=== PATIENT | female | born 1950 | race Caucasian/White ===

== ENCOUNTER 2018-06-15 07:43 | Outpatient (CLI) | payer MEDICARE, OTHER | END 2018-06-15 07:44 | disposition home or self-care (01) | LOC: BICMAMMO 07:43 | PROVIDERS: ATTEND Obstetrics & Gynecology | DX: Z12.31 Encounter for screening mammogram for malignant neoplasm of breast (principal); R92.1 Mammographic calcification found on diagnostic imaging of breast | CPT/HCPCS: 77063; 77067 ==

== ENCOUNTER 2019-07-05 10:17 | Outpatient (CLI) | payer MEDICARE, OTHER ==
--- NOTE | 2019-07-05 11:20 | MMO ---
Bilateral MAMMO Bilat Screen [facility]. CLINICAL HISTORY: Patient is 68 years old and is seen for screening. The patient has the following family history of breast cancer: sister, malignant (generic). The patient has no personal history of cancer. The patient has a history of left Excisional Biopsy in 35 years ago - benign - cyst removed. VIEWS: The views performed were: bilateral craniocaudal with tomosynthesis and bilateral mediolateral oblique with tomosynthesis. FILMS COMPARED: The present examination has been compared to prior imaging studies performed at [facility] on 05/10/2015, 06/03/2016, 06/04/2017 and 06/15/2018. This study has been interpreted with the assistance of computer-aided detection. MAMMOGRAM FINDINGS: The breasts are heterogeneously dense, which could obscure a lesion on mammography. There are stable benign appearing calcifications seen in both breasts. There are no suspicious masses, suspicious calcifications, or new areas of architectural distortion. IMPRESSION: THERE IS NO MAMMOGRAPHIC EVIDENCE OF MALIGNANCY. A ROUTINE FOLLOW-UP MAMMOGRAM IN 1 YEAR IS RECOMMENDED. THE RESULTS OF THIS EXAM WERE SENT TO THE PATIENT. ACR BI-RADS Category 2 - Benign finding MAMMOGRAPHY NOTE: 1. A negative mammogram report should not delay a biopsy if a dominant of clinically suspicious mass is present. 2. Approximately 10% to 15% of breast cancers are not detected by mammography. 3. Adenosis and dense breasts may obscure an underlying neoplasm. Reported by: ROSALIO ALVAREZ MD Electonically Signed: [id number]
== END 2019-07-05 10:18 | disposition home or self-care (01) ==
LOC: BICMAMMO 10:17
PROVIDERS: ATTEND Physician Assistant
DX: Z12.31 Encounter for screening mammogram for malignant neoplasm of breast (principal); Z80.3 Family history of malignant neoplasm of breast
CPT/HCPCS: 77063; 77067

== ENCOUNTER 2019-08-19 20:05 | Inpatient (IN) | payer MEDICARE, OTHER ==
[2019-08-19 20:56] LABS: Bilirubin Negative (Negative); Blood, Urine Negative (Negative); Clarity Clear (Clear); Glucose, Urine (Dipstick) 70 mg/dL (Negative); Leukocyte 75 Leu/uL (Negative); Mucous/LPF 1+ LPF (<2+); Nitrite Negative (Negative); Protein, Urine (Dipstick) 70 mg/dL (Neg-Trace); RBC/HPF 0-3 HPF (0-3); Squamous Epithelial 0-3 HPF (0-3)
[2019-08-19 21:06] LABS: Bacteria/HPF 2+ HPF (None Seen)
[2019-08-19 22:14] LABS: Troponin I Less than 0.010 ng/mL (< 0.028)
[2019-08-19 22:21] LABS: Actual Bicarbonate (HCO3a) 31.1 mEq/L (22-28); Analyzer IN Cardio ER; Base Excess (BEa) 1.6 mEq/L (-2.0 to +3.0); Calcium, Ionized 1.04 mmol/L (1.12-1.30); Carboxyhemoglobin (COHb) 1.2 gm% (0.0-3.0); Hemoglobin (Hb) 15.1 g/dL (12.0-16.0); O2 Tension (PaO2) 69.6 mmHg (> 80.0); Potassium - ABG Lab 3.96 mmol/L (3.70-5.30)
[2019-08-19 22:23] LABS: CO2 Tension 71.9 mmHg (35.0-45.0); Puncture Site RRA; pH, Arterial 7.25 (7.35-7.45)
[2019-08-19 22:24] LABS: ALV-art Gradient 68.685 (0-20)
[2019-08-19] MEDS ORDERED: Ondansetron ODT 4 MG TAB SL PRN (23:03)
[2019-08-19] MEDS ORDERED: Sodium Chloride 0.9% 1,000 ML IV SCH (23:03)
[2019-08-19] MEDS ORDERED: Ondansetron PF 4 MG/2 ML Vial IVP PRN (23:03)
[2019-08-19 23:34] VITALS: BMI 26.9
[2019-08-20 01:11] LABS: Troponin I 0.014 ng/mL (< 0.028)
[2019-08-20] MEDS ORDERED: hydrALAZINE 20 MG/ML VIAL SLOW IVP PRN (01:31)
[2019-08-20] MEDS ORDERED: Acetaminophen 500 MG TAB PO PRN (01:31)
[2019-08-20] MEDS ORDERED: Labetalol HCl 100 MG/20 ML VIAL SLOW IVP PRN (01:31)
[2019-08-20] MEDS ORDERED: Bacteriostatic Water 30 ML VIAL FS PRN (01:37)
[2019-08-20] MEDS: Sodium Chloride 0.9% 1,000 ML IV SCH ×2 (01:41→15:47)
--- NOTE | 2019-08-20 03:00 | HP ---
PRIMARY CARE PROVIDER: Patti Benedict MD. CHIEF COMPLAINT: Shortness of breath. HISTORY OF PRESENT ILLNESS: This is a 69-year-old female who was transferred from [facility] for increasing shortness of breath and COPD exacerbation. The patient had complained of approximate 3-day history of persistent shortness of breath and weakness in the context of known COPD. The patient states she had been prescribed home oxygen, but has not been wearing the oxygen. The patient denied any fever, chills, exposure to history or recent travel. The patient does report nausea and vomiting, which began on the date of evaluation in the emergency room. The patient denied any productive cough for hemoptysis. In the emergency room, the patient underwent general evaluation including chest imaging showing no acute infiltrate. The patient was initially treated with Rocephin, azithromycin, Augmentin, intravenous normal saline, Zofran, Solu-Medrol, and DuoNebs. PAST MEDICAL HISTORY: 1. Chronic obstructive pulmonary disease. 2. Tobacco abuse ongoing. 3. Hypertension. 4. Hyperlipidemia. PAST SURGICAL HISTORY: Reviewed and negative. CURRENT MEDICATIONS: 1. Diphenhydramine 25 mg p.o. at bedtime p.r.n. 2. Ipratropium bromide 0.2 mg inhaled daily p.r.n. 3. Lisinopril 10 mg p.o. daily. 4. Pravachol 20 mg p.o. at bedtime. ALLERGIES: TO CODEINE AND MORPHINE SULFATE. FAMILY HISTORY: No inheritable diseases per patient report. SOCIAL HISTORY: Smokes up to a pack of cigarettes daily. No alcohol or illicit drug use. REVIEW OF SYSTEMS: CONSTITUTIONAL: Negative for weight loss or gain, ability to conduct usual activities. SKIN: Negative for rash, itching. EYES: Negative for double vision, pain. ENT/MOUTH: Negative for nose bleeding, neck stiffness, pain, tenderness. CARDIOVASCULAR: Negative for palpitations, dyspnea on exertion, orthopnea. RESPIRATORY: Negative for shortness of breath, wheezing, cough, hemoptysis, fever or night sweats. GASTROINTESTINAL: Negative for poor appetite, abdominal pain, heartburn, nausea, vomiting, constipation, or diarrhea. GENITOURINARY: Negative for urgency, frequency, dysuria, nocturia. MUSCULOSKELETAL: Negative for pain, swelling. NEUROLOGIC/PSYCHIATRIC: Negative for anxiety, depression. ALLERGY/IMMUNOLOGIC: Negative for skin rash, bleeding tendency. Otherwise is negative except as stated per HPI. PHYSICAL EXAMINATION: VITAL SIGNS: On admission, blood pressure 115/79, pulse 96, respiratory rate 25, temperature 97.6 degrees Fahrenheit, O2 saturation 95% on 2 L/minute by nasal cannula. GENERAL APPEARANCE: This is a 69-year-old female, currently on BiPAP noninvasive mechanical ventilation, in no acute distress. HEENT: Pupils are equal, round, reactive to light and accommodation. Extraocular muscles are intact. No scleral icterus. No conjunctival injection. Nares are patent. OP is clear. Teeth in fair repair. NECK: Supple. No cervical adenopathy. No thyromegaly. No carotid bruits. No JVD appreciated. Cervical spine with full active and passive range of motion. No meningeal signs noted. CHEST: Diminished breath sounds bilaterally with occasional coarse sound in the base. ABDOMEN: Rounded, soft, nontender, and nondistended. Bowel sounds are positive in all 4 quadrants. There is no hepatosplenomegaly. No abdominal bruits. No rebound or guarding appreciated. EXTREMITIES: Warm and dry with fair turgor. No clubbing, cyanosis, or asymmetric edema appreciated. Pulses are palpable distally at the dorsalis pedis, posterior tibial, and popliteal arteries bilaterally. Capillary refill less than 2 seconds. NEUROLOGIC: Cranial nerves 2 through 12 are grossly intact. No focal or lateralizing signs appreciated. PERTINENT LABORATORY AND X-RAY FINDINGS: Sodium 141, potassium 4.2, chloride 95, CO2 of 35, BUN 14, creatinine 0.78, glucose 189. Lactic acid level 1.6, calcium 9.1. LFTs within normal limits. Troponin I negative x1. CBC showed a white blood cell count of 17.9, hemoglobin 15.8, hematocrit 53, platelet count 445 with 91% neutrophilia. ABG dated 08/19/2019 showed a pH of 7.25, pCO2 of 72, pO2 of 70, bicarb 31, O2 saturation 93% on 32% FiO2. Portable chest x-ray dated 08/19/2019 showed no acute cardiopulmonary process. EKG dated 08/19/2019 by my interpretation shows a sinus mechanism with heart rates in the 90s. Normal R-wave progression noted in the precordial leads. Normal axis. No acute ST-T wave changes appreciated. ASSESSMENT AND PLAN: 1. Acute hypoxic hypercapnic respiratory failure. The patient will be admitted to the intermediate care unit. Continue BiPAP noninvasive mechanical ventilation, titrating to clinical response. See #2 below for management. 2. Acute chronic obstructive pulmonary disease exacerbation. We will continue Levaquin 750 mg IV q.24 hours. DuoNeb q.4 hours. Solu-Medrol 40 mg IV q.6 hours. Pulmonology consult in the a.m.. 3. Hypertension. Confirm home blood pressure regimen. IV hydralazine and labetalol p.r.n. systolic greater than or equal to 180. 4. Tobacco abuse. We will offer smoking cessation resources prior to discharge. 5. Prophylaxis. Sequential compression devices while in bed. Pepcid 20 mg IV b.i.d. 6. Code status is full. Surrogate medical decision maker is the patient's spouse. Job ID: [id number]
[2019-08-20] MEDS: Ondansetron PF 4 MG/2 ML Vial IVP PRN ×2 (03:56→10:13)
[2019-08-20 04:25] LABS: Band 12 % (5-11); Hemoglobin 13.3 g/dL (12.0-16.0); Hypochromia SLIGHT = 6-15 cells (100X) (0-5/hpf); Lymphocytes 3 % (21-51); MDiff Complete? YES; Mean Corpuscular HGB CONC 31.5 g/dL (32.0-36.0); Mean Corpuscular Hemoglobin 30.8 pg (27.0-31.0); Mean Platelet Volume 8.2 fL (7.4-10.4); Neutrophil 85 % (42-75); Platelet Count 366 thou/uL (130-400); Platelet Morphology Comment Appears Adequate; RBC Distribution Width 12.5 % (11.5-14.5); Red Blood Cell (RBC) Count 4.32 mill/uL (4.20-5.40); White Blood Cell (WBC) Count 13.5 thou/uL (4.8-10.8)
[2019-08-20 04:41] LABS: Anion Gap 12 mmol/L (10-20); BUN (Urea Nitrogen) 12 mg/dL (9.8-20.1); Calc. Creatinine Clearance 90 mL/min (70-130); Calcium 7.8 mg/dL (7.8-10.44); Carbon Dioxide 32 mmol/L (23-31); Chloride 102 mmol/L (98-107); Estimated GFR-MDRD Greater than 90; Glucose 158 mg/dL (80-115); Potassium 4.4 mmol/L (3.5-5.1); Sodium 142 mmol/L (136-145)
[2019-08-20 04:46] LABS: Troponin I 0.013 ng/mL (< 0.028)
[2019-08-20] MEDS: methylPREDNISolone Sod Succ 40 MG VIAL IVP SCH ×3 (05:45→17:40)
--- NOTE | 2019-08-20 07:40 | PDOC.PULCN ---
Pulmonology Consult: HPI - Date of Consult Date: 08/20/19 Time: 07:30 - Consult Details Reason for Consult: acute hypoxic hypercapneic resp failure requiring bipap Requesting Physician: Dr. Giles - History of Present Illness HPI: 69 yo F with COPD, non compliant with medications, transferred from [place] for respiratory failure requiring Bipap due to COPD exacerbation. Brenton started feeling SOB 3 days ago and overall not feeling well. >20 pack year history, currently smoking and states she uses an inhaler intermittently. She has never seen a lung doctor before. Denies fevers, chills but reports nausea and vomiting. She states she has not been wearing oxygen that she has been given in the past. Review of imaging shows CXR with hyperinflation but no signs of infiltrate. She received a dose of rocephin, azithromycin and levaquin , brochodilator therapy and IV steroids. ABG showed 7.25/71.9/69.6 consistent with respiratory acidosis and acute respiratory failure, thus she was tfx and admitted to the IMCU. Pulmonology Consult: ROS - Review of Systems Constitutional: negative: fever, chills, sweats Cardiovascular: negative: palpitations, orthopnea Respiratory: cough, non-productive cough, short of breath, wheezing. negative: blodd streaked sputum Pulmonology Consult: [facility] Source: patient Past Medical History: Current tobacco abuse, COPD with noncompliance, HLD, HTN - Family History Family history: reviewed and not pertinent - Social History Smoking Status: Current every day smoker Pack Years: 20 Alcohol Use: none Drug Use History: none Pulmonology Consult: Meds - Medications MAR Reviewed: Yes Medications: Current Medications Acetaminophen (Tylenol) 1,000 mg PO Q6H PRN PRN Reason: Mild Pain (1-3) Albuterol/Ipratropium (Duoneb) 3 ml NEB [id number] DEMARCUS Last Admin: 08/20/19 02:23 Dose: 3 ml Famotidine (Pepcid) 20 mg SLOW IVP Q12HR DEMARCUS Hydralazine HCl (Apresoline) 10 mg SLOW IVP Q4H PRN PRN Reason: SBP > 180 and HR < 70 Levofloxacin 750 mg/ Device 150 mls @ 100 mls/hr IVPB Q24HR [facility] Last Admin: 08/20/19 02:33 Dose: 150 mls Sodium Chloride (Normal Saline 0.9%) 1,000 mls @ 75 mls/hr IV .[id number] [facility] Last Admin: 08/20/19 01:41 Dose: Not Given Labetalol HCl (Normodyne) 20 mg SLOW IVP Q4H PRN PRN Reason: SBP > 180 and HR >/= 70 Methylprednisolone Sodium Succinate (Solu-Medrol) 40 mg IVP Q6HR [facility] Last Admin: 08/20/19 05:45 Dose: 40 mg Ondansetron HCl (Zofran Odt) 4 mg PO Q6H PRN PRN Reason: Nausea/Vomiting Ondansetron HCl (Zofran) 4 mg IVP Q6H PRN PRN Reason: Nausea/Vomiting Last Admin: 08/20/19 03:56 Dose: 4 mg Sterile Water (Bacteriostatic Water) 1 ml FS PRN PRN PRN Reason: RECONSTITUTION - Allergies Allergies/Adverse Reactions: Allergies Allergy/AdvReac Type Severity Reaction Status Date / Time codeine Allergy Verified 08/19/19 23:22 morphine Allergy Verified 08/19/19 23:22 Pulmonology Consult: PE - Physical Exam Constitutional: NAD HEENT: sclera anicteric Cardiovascular: RRR, no significant murmur Respiratory: decreased breath sounds, wheezes Focused Respiratory Location: decreased breath sounds: Right, Left, Upper, Lower Gastrointestinal: soft Musculoskeletal: no edema Neurological: non-focal Pulmonology Consult: Results - Labs Result Diagrams: 08/20/19 03:26 08/20/19 03:26 - ABG Interpretation ABG Results: ABG pH 7.25 (7.35-7.45) L* 08/19/19 20:44 ABG pCO2 71.9 mmHg (35.0-45.0) H* 08/19/19 20:44 ABG O2 Sat Calc/Josh 92.6 % (94.0-98.0) L 08/19/19 20:44 ABG Base Excess 1.6 mEq/L (-2.0 to +3.0) 08/19/19 20:44 - Radiology Interpretation Chest x-ray Status: image reviewed by me, report reviewed by me Additional comments: Hyperinflated lungs No signs of focal infilatrate Pulmonology Consult: A/P - Problem (1) Acute respiratory failure with hypoxia and hypercapnia Current Visit: Yes Code(s): J96.01 - ACUTE RESPIRATORY FAILURE WITH HYPOXIA; J96.02 - ACUTE RESPIRATORY FAILURE WITH HYPERCAPNIA Status: Acute (2) COPD exacerbation Current Visit: Yes Code(s): J44.1 - CHRONIC OBSTRUCTIVE PULMONARY DISEASE W ( ACUTE) EXACERBATION Status: Acute - Time Time: 50% of the time was spent in coordination of care (as documented) at patient's floor/unit and/or counseling patient. Time with Patient: greater than 50 minutes - Plan Plan: 69 yo F with COPD here for acute hypoxic hypercapenic respiratory failure secondary to COPD exacerbation requiring non-invasive positive pressure ventilation 1. Acute hypoxic hypercapneic respiratory failure requiring non-invasive ventilation: S/P bipap overnight but currently non hypoxic on nasal cannula, wean as tolerated. Continue scheduled bronchodilator therapy, IV steroids, antibiotics. 2. Acute on chronic COPD exacerbation: Continue as above. Will need home medication regimen changed to optimal therapy. Counseled on smoking cessation. Can consider continuation of levaquin for 5 day course. 3. Respiratory acidemia: pH 7.25/ pCO2 71.9/ pO2 69.9. Secondary to above. Expect acidosis to correct with mgmt of COPD 4. Tobacco abuse: Counseled cessation 5. HTN: Continue current regimen Dr. Peterson's Addendum Pt seen and examined. I have independently reviewed and confirmed the above information. This patient has severe COPD with current exacerbation and acute on chronic hypercapnic respiratory failure. So far she has responded well to the Bipap, steroids, and nebs. She has been told to quit smoking. I have added brovana and pulmicort, but this could be changed to symbicort (or other) as an outpatient. Will follow.
[2019-08-20] MEDS: Famotidine/PF 20 mg/2ml Vial SLOW IVP SCH ×2 (10:13→20:57)
[2019-08-20] MEDS: Budesonide 0.5 MG/2 ML NEB INH SCH (18:16)
[2019-08-20] MEDS: Arformoterol 15 MCG/2 ML NEB NEB SCH (18:16)
--- NOTE | 2019-08-20 19:09 | PDOC.HOSPP ---
- Subjective Subjective: Breathing well on nasal cannula. Currently no wheezing. No overnight events. - Objective Vital Signs & Weight: Vital Signs (12 hours) Temp Pulse Resp BP Pulse Ox 08/20/19 18:16 96 16 95 08/20/19 17:58 97.8 F 96 22 H 105/63 95 08/20/19 15:17 98.4 F 08/20/19 14:21 90 21 H 90 L 08/20/19 11:30 97.8 F 08/20/19 11:12 86 18 92 L 08/20/19 08:00 92 L 08/20/19 07:29 97.5 F L Weight Weight 152 lb Most Recent Monitor Data Heart Rate from ECG 91 NIBP 122/71 NIBP BP-Mean 88 Respiration from ECG 21 SpO2 89 I&O: 08/19/19 08/20/19 08/21/19 06:59 06:59 06:59 Intake Total 570 Balance 570 Result Diagrams: 08/20/19 03:26 08/20/19 03:26 Hospitalist ROS - Review of Systems All other systems reviewed; all pertinent +/- noted in HPI/Subj - Medication Medications: Active Medications Generic Name Dose Route Start Last Admin Trade Name Freq PRN Reason Stop Dose Admin Albuterol/Ipratropium 3 ml 08/20/19 02:30 08/20/19 18:17 Duoneb NEB 3 ml [id number] DEMARCUS Administration Arformoterol Tartrate 15 mcg 08/20/19 18:30 08/20/19 18:16 Brovana NEB 15 mcg BID-RT DEMARCUS Administration Budesonide 0.5 mg 08/20/19 18:30 08/20/19 18:16 Pulmicort Neb Solution INH 0.5 mg BID-RT DEMARCUS Administration Famotidine 20 mg 08/20/19 09:00 08/20/19 10:13 Pepcid SLOW IVP 20 mg Q12HR DEMARCUS Administration Sodium Chloride 1,000 mls @ 75 mls/hr 08/20/19 01:31 08/20/19 15:47 Normal Saline 0.9% IV 1,000 mls .[id number] DEMARCUS Administration Methylprednisolone Sodium Succinate 40 mg 08/20/19 06:00 08/20/19 17:40 Solu-Medrol IVP 08/21/19 09:00 40 mg Q6HR DEMARCUS Administration Ondansetron HCl 4 mg 08/20/19 01:31 08/20/19 10:13 Zofran IVP 4 mg Q6H PRN Administration Nausea/Vomiting - Exam General Appearance: NAD, awake alert Eye: PERRL, anicteric sclera ENT: normocephalic atraumatic, no oropharyngeal lesions, moist mucosa Neck: supple, symmetric, no JVD, no thyromegaly, no lymphadenopathy, no carotid bruit Heart: RRR, no murmur, no gallops, no rubs, normal peripheral pulses Respiratory: CTAB, no wheezes, no rales, no ronchi, normal chest expansion, no tachypnea, normal percussion Gastrointestinal: soft, non-tender, non-distended, normal bowel sounds, no palpable masses, no hepatomegaly, no splenomegaly, no bruit Extremities: no cyanosis, no clubbing, no edema Skin: normal turgor, no lesions, no rashes Neurological: cranial nerve grossly intact, normal sensation to touch, no weakness, no focal deficits, no new deficit Musculoskeletal: normal tone, normal strength, no muscle wasting Psychiatric: normal affect, normal behavior, A&O x 3 Hosp A/P (1) Acute respiratory failure with hypoxia and hypercapnia Code(s): J96.01 - ACUTE RESPIRATORY FAILURE WITH HYPOXIA; J96.02 - ACUTE RESPIRATORY FAILURE WITH HYPERCAPNIA Status: Acute (2) COPD exacerbation Code(s): J44.1 - CHRONIC OBSTRUCTIVE PULMONARY DISEASE W (ACUTE) EXACERBATION Status: Acute - Plan Continue budesonide and duonebs IV steroids to finish today, continue prednisone 40mg starting tomorrow No need for abx, procal is 0.04 and no active sign of pneumonia. Will continue to monitor. TItrate oxygen between 88 and 92% Disposition: Continue to tx. Ok to transfer to medical floor. PT/OT to work with pt. Pulm reccs appreciated.
[2019-08-20] MEDS: Ondansetron ODT 4 MG TAB PO PRN (20:57)
[2019-08-21] MEDS: methylPREDNISolone Sod Succ 40 MG VIAL IVP SCH ×2 (00:29→05:20)
[2019-08-21] MEDS: Sodium Chloride 0.9% 1,000 ML IV SCH ×2 (05:20→16:25)
[2019-08-21 06:35] LABS: Band 8 % (5-11); Hemoglobin 14.7 g/dL (12.0-16.0); Lymphocytes 6 % (21-51); MDiff Complete? YES; Mean Corpuscular HGB CONC 30.8 g/dL (32.0-36.0); Mean Corpuscular Hemoglobin 30.7 pg (27.0-31.0); Mean Corpuscular Volume 99.7 fL (78.0-98.0); Mean Platelet Volume 8.3 fL (7.4-10.4); Neutrophil 86 % (42-75); Platelet Count 434 thou/uL (130-400); Platelet Morphology Comment Appears Increased; RBC Distribution Width 12.6 % (11.5-14.5); White Blood Cell (WBC) Count 23.5 thou/uL (4.8-10.8)
[2019-08-21 06:39] LABS: Anion Gap 13 mmol/L (10-20); BUN (Urea Nitrogen) 12 mg/dL (9.8-20.1); Calc. Creatinine Clearance 89 mL/min (70-130); Calcium 8.5 mg/dL (7.8-10.44); Carbon Dioxide 28 mmol/L (23-31); Chloride 106 mmol/L (98-107); Estimated GFR-MDRD 90; Glucose 131 mg/dL (80-115); Potassium 4.1 mmol/L (3.5-5.1); Sodium 143 mmol/L (136-145)
[2019-08-21] MEDS: Arformoterol 15 MCG/2 ML NEB NEB SCH ×2 (06:47→19:12)
[2019-08-21] MEDS: Budesonide 0.5 MG/2 ML NEB INH SCH ×2 (06:48→19:12)
[2019-08-21] MEDS: Famotidine/PF 20 mg/2ml Vial SLOW IVP SCH ×2 (08:35→21:19)
[2019-08-21] MEDS: predniSONE 20 MG TAB PO SCH (08:36)
[2019-08-21] MEDS: Ondansetron PF 4 MG/2 ML Vial IVP PRN (10:39)
--- NOTE | 2019-08-21 15:22 | PDOC.HOSPP ---
- Subjective Subjective: Breathing better today. Continues on nasal cannula. No fever, chills, cough, nausea, vomiting or other associated sxs. - Objective Vital Signs & Weight: Vital Signs (12 hours) Temp Pulse Resp BP Pulse Ox 08/21/19 14:03 99 20 90 L 08/21/19 10:28 92 20 87 L 08/21/19 08:00 90 L 08/21/19 07:18 98.1 F 90 20 121/74 90 L 08/21/19 06:48 97 08/21/19 06:47 85 16 97 08/21/19 06:45 85 16 97 08/21/19 04:00 97.1 F L 98 16 129/87 98 Weight Weight 152 lb Most Recent Monitor Data Heart Rate from ECG 91 NIBP 122/71 NIBP BP-Mean 88 Respiration from ECG 21 SpO2 89 I&O: 08/20/19 08/21/19 08/22/19 06:59 06:59 06:59 Intake Total 570 1065 Output Total 2 Balance 570 1063 Result Diagrams: 08/21/19 06:05 08/21/19 06:05 Hospitalist ROS - Review of Systems All other systems reviewed; all pertinent +/- noted in HPI/Subj - Medication Medications: Active Medications Generic Name Dose Route Start Last Admin Trade Name Freq PRN Reason Stop Dose Admin Albuterol/Ipratropium 3 ml 08/20/19 02:30 08/21/19 14:03 Duoneb NEB 3 ml [id number] DEMARCUS Administration Arformoterol Tartrate 15 mcg 08/20/19 18:30 08/21/19 06:47 Brovana NEB 15 mcg BID-RT DEMARCUS Administration Budesonide 0.5 mg 08/20/19 18:30 08/21/19 06:48 Pulmicort Neb Solution INH 0.5 mg BID-RT DEMARCUS Administration Famotidine 20 mg 08/20/19 09:00 08/21/19 08:35 Pepcid SLOW IVP 20 mg Q12HR DEMARCUS Administration Sodium Chloride 1,000 mls @ 75 mls/hr 08/20/19 01:31 08/21/19 05:20 Normal Saline 0.9% IV 1,000 mls .[id number] DEMARCUS Administration Ondansetron HCl 4 mg 08/20/19 01:31 08/20/19 20:57 Zofran Odt PO 4 mg Q6H PRN Administration Nausea/Vomiting Ondansetron HCl 4 mg 08/20/19 01:31 08/21/19 10:39 Zofran IVP 4 mg Q6H PRN Administration Nausea/Vomiting Prednisone 40 mg 08/21/19 09:00 08/21/19 08:36 Prednisone PO 40 mg DAILY DEMARCUS Administration Sterile Water 1 ml 08/20/19 01:37 08/21/19 05:20 Bacteriostatic Water FS 1 ml PRN PRN Administration RECONSTITUTION - Exam General Appearance: NAD, awake alert Eye: PERRL, anicteric sclera ENT: normocephalic atraumatic, no oropharyngeal lesions, moist mucosa Neck: supple, symmetric, no JVD, no thyromegaly, no lymphadenopathy, no carotid bruit Heart: RRR, no murmur, no gallops, no rubs, normal peripheral pulses Respiratory: CTAB, no wheezes, no rales, no ronchi, normal chest expansion, no tachypnea, normal percussion Gastrointestinal: soft, non-tender, non-distended, normal bowel sounds, no palpable masses, no hepatomegaly, no splenomegaly, no bruit Extremities: no cyanosis, no clubbing, no edema Skin: normal turgor, no lesions, no rashes Neurological: cranial nerve grossly intact, normal sensation to touch, no weakness, no focal deficits, no new deficit Musculoskeletal: normal tone, normal strength, no muscle wasting Psychiatric: normal affect, normal behavior, A&O x 3 Hosp A/P (1) Acute respiratory failure with hypoxia and hypercapnia Code(s): J96.01 - ACUTE RESPIRATORY FAILURE WITH HYPOXIA; J96.02 - ACUTE RESPIRATORY FAILURE WITH HYPERCAPNIA Status: Acute (2) COPD exacerbation Code(s): J44.1 - CHRONIC OBSTRUCTIVE PULMONARY DISEASE W (ACUTE) EXACERBATION Status: Acute - Plan Continue budesonide and duonebs continue prednisone 40mg starting tomorrow No need for abx, procal is 0.04 and no active sign of pneumonia. Will continue to monitor. TItrate oxygen between 88 and 92% Disposition: Continue to tx. Ok to transfer to medical floor. PT/OT to work with pt. Pulm reccs appreciated. Probable d/c in next 24 to 48 hrs, wean oxygen.
--- NOTE | 2019-08-21 16:03 | PRG ---
DATE OF SERVICE: 08/21/2019 SUBJECTIVE: The patient is doing reasonably well, had no acute complaints. OBJECTIVE: VITAL SIGNS: Temperature is 98.0, pulse 97, respirations 20, O2 saturation 98% on 3 L, blood pressure 135/57. HEENT: Unremarkable. NECK: No adenopathy or JVD. CHEST: With diffuse wheezing anteriorly. CARDIAC: S1, S2. Regular. ABDOMEN: Soft. EXTREMITIES: No edema. LABORATORY DATA: White blood cell count 23.5, hematocrit 47.8, and platelet count 434. Sodium 143, potassium 4.1, chloride 106, CO2 of 28, BUN 12, creatinine 0.6, glucose 131. ASSESSMENT: 1. Chronic obstructive pulmonary disease with exacerbation. 2. Tobacco abuse. 3. Status post hypercapnic, hypoxic respiratory failure. PLAN: Would continue IV steroids, nebulization treatments, and antibiotics. Wean oxygen as tolerated. She needs several more days in the hospital. Job ID: [id number]
[2019-08-22] MEDS: Sodium Chloride 0.9% 1,000 ML IV SCH (05:15)
[2019-08-22] MEDS: Arformoterol 15 MCG/2 ML NEB NEB SCH ×2 (07:20→18:57)
[2019-08-22] MEDS: Budesonide 0.5 MG/2 ML NEB INH SCH ×2 (07:23→18:58)
[2019-08-22] MEDS: predniSONE 20 MG TAB PO SCH (08:02)
[2019-08-22] MEDS: Famotidine/PF 20 mg/2ml Vial SLOW IVP SCH ×2 (08:02→20:20)
[2019-08-22] MEDS: Ondansetron PF 4 MG/2 ML Vial IVP PRN (08:02)
[2019-08-22 10:37] LABS: #Eosinphils 0.1 thou/uL (0.0-0.7); #Lymphocytes 0.9 thou/uL (1.20-3.40); #Monocytes 1.2 thou/uL (0.11-0.59); #Neutrophils 16.3 thou/uL (1.40-6.50); %Eosinophils 0.4 % (0.0-10.0); %Lymphocytes 4.7 % (21.0-51.0); %Monocytes 6.4 % (0.0-10.0); %Neutrophils 88.5 % (42.0-75.0); Hemoglobin 13.7 g/dL (12.0-16.0); Mean Corpuscular HGB CONC 30.7 g/dL (32.0-36.0); Mean Corpuscular Hemoglobin 30.3 pg (27.0-31.0); Mean Corpuscular Volume 98.6 fL (78.0-98.0); Mean Platelet Volume 7.8 fL (7.4-10.4); Platelet Count 443 thou/uL (130-400); RBC Distribution Width 12.5 % (11.5-14.5); Red Blood Cell (RBC) Count 4.53 mill/uL (4.20-5.40); White Blood Cell (WBC) Count 18.5 thou/uL (4.8-10.8)
--- NOTE | 2019-08-22 11:09 | PDOC.HOSPP ---
- Subjective Subjective: States she feel exhausted and depressed. Wants to quit smoking. Still requiring 3L nc, unable to wean when she walks. She does not use oxygen at home. - Objective Vital Signs & Weight: Vital Signs (12 hours) Temp Pulse Resp BP BP Pulse Ox 08/22/19 10:32 92 20 90 L 08/22/19 08:00 91 L 08/22/19 07:35 97.3 F L 91 18 128/79 98 08/22/19 07:24 95 08/22/19 07:23 92 20 08/22/19 07:20 92 20 95 08/22/19 07:16 92 20 95 08/22/19 04:00 97.9 F 91 18 117/73 96 08/22/19 01:39 91 16 97 08/22/19 00:00 97.4 F L 91 20 105/64 97 Weight Weight 152 lb Most Recent Monitor Data Heart Rate from ECG 91 NIBP 122/71 NIBP BP-Mean 88 Respiration from ECG 21 SpO2 89 I&O: 08/21/19 08/22/19 08/23/19 06:59 06:59 06:59 Intake Total 1065 1065 Output Total 2 Balance 1063 1065 Result Diagrams: 08/22/19 10:27 08/21/19 06:05 Hospitalist ROS - Review of Systems All other systems reviewed; all pertinent +/- noted in HPI/Subj - Medication Medications: Active Medications Generic Name Dose Route Start Last Admin Trade Name Freq PRN Reason Stop Dose Admin Albuterol/Ipratropium 3 ml 08/20/19 02:30 08/22/19 10:32 Duoneb NEB 3 ml [id number] DEMARCUS Administration Arformoterol Tartrate 15 mcg 08/20/19 18:30 08/22/19 07:20 Brovana NEB 15 mcg BID-RT DEMARCUS Administration Budesonide 0.5 mg 08/20/19 18:30 08/22/19 07:23 Pulmicort Neb Solution INH 0.5 mg BID-RT DEMARCUS Administration Famotidine 20 mg 08/20/19 09:00 08/22/19 08:02 Pepcid SLOW IVP 20 mg Q12HR DEMARCUS Administration Sodium Chloride 1,000 mls @ 75 mls/hr 08/20/19 01:31 08/22/19 05:15 Normal Saline 0.9% IV 1,000 mls .[id number] DEMARCUS Administration Ondansetron HCl 4 mg 08/20/19 01:31 08/20/19 20:57 Zofran Odt PO 4 mg Q6H PRN Administration Nausea/Vomiting Ondansetron HCl 4 mg 08/20/19 01:31 08/22/19 08:02 Zofran IVP 4 mg Q6H PRN Administration Nausea/Vomiting Prednisone 40 mg 08/21/19 09:00 08/22/19 08:02 Prednisone PO 40 mg DAILY DEMARCUS Administration Sterile Water 1 ml 08/20/19 01:37 08/21/19 05:20 Bacteriostatic Water FS 1 ml PRN PRN Administration RECONSTITUTION - Exam General Appearance: NAD, awake alert Eye: PERRL, anicteric sclera ENT: normocephalic atraumatic, no oropharyngeal lesions, moist mucosa Neck: supple, symmetric, no JVD, no thyromegaly, no lymphadenopathy, no carotid bruit Heart: RRR, no murmur, no gallops, no rubs, normal peripheral pulses Respiratory: CTAB, no wheezes, no rales, no ronchi, normal chest expansion, no tachypnea, normal percussion Gastrointestinal: soft, non-tender, non-distended, normal bowel sounds, no palpable masses, no hepatomegaly, no splenomegaly, no bruit Extremities: no cyanosis, no clubbing, no edema Skin: normal turgor, no lesions, no rashes Neurological: cranial nerve grossly intact, normal sensation to touch, no weakness, no focal deficits, no new deficit Musculoskeletal: normal tone, normal strength, no muscle wasting Psychiatric: normal affect, normal behavior, A&O x 3 Hosp A/P (1) Acute respiratory failure with hypoxia and hypercapnia Code(s): J96.01 - ACUTE RESPIRATORY FAILURE WITH HYPOXIA; J96.02 - ACUTE RESPIRATORY FAILURE WITH HYPERCAPNIA Status: Acute (2) COPD exacerbation Code(s): J44.1 - CHRONIC OBSTRUCTIVE PULMONARY DISEASE W (ACUTE) EXACERBATION Status: Acute (3) Depression Code(s): F32.9 - MAJOR DEPRESSIVE DISORDER, SINGLE EPISODE, UNSPECIFIED Status : Acute (4) Tobacco abuse counseling Code(s): Z71.6 - TOBACCO ABUSE COUNSELING Status: Acute (5) HTN (hypertension) Code(s): I10 - ESSENTIAL (PRIMARY) HYPERTENSION Status: Acute (6) HLD (hyperlipidemia) Code(s): E78.5 - HYPERLIPIDEMIA, UNSPECIFIED Status: Acute (7) Leukocytosis Code(s): D72.829 - ELEVATED WHITE BLOOD CELL COUNT, UNSPECIFIED Status: Acute - Plan Continue budesonide and duonebs continue prednisone 40mg No need for abx, procal is 0.04 and no active sign of pneumonia. Will continue to monitor. WBC elevated due to IV steroid use. Titrate oxygen between 88 and 92% Symptoms of depression and desire to stop smoking, counseled extensively today and will start Wellbutrin XR Resume home medication for HTN and HLD Disposition: Wean off oxygen (she is not on at home). Will need some inhaler therapy for baseline COPD upon discharge. Consult to CM for home health planning for physical therapy. Likely d/c in the next 24 to 48 hours depending on clinical condition.
--- NOTE | 2019-08-22 15:45 | PRG ---
DATE OF SERVICE: 08/22/2019 SUBJECTIVE: The patient is feeling better, has no complaints. She wants know whether or not she will need oxygen at home. OBJECTIVE: VITAL SIGNS: Her O2 sats 90% on 3 L, respiratory rate 20, pulse 100, temperature 97.3, blood pressure 124/78. HEENT: Unremarkable. NECK: No adenopathy or JVD. LUNGS: Diminished breath sounds. CARDIAC: S1, S2 regular. ABDOMEN: Soft. EXTREMITIES: No edema. LABORATORY DATA: White blood cell count 18.5, hematocrit 44.7, and platelet count 443. ASSESSMENT: 1. Chronic obstructive pulmonary disease with exacerbation. 2. Chronic hypercapnic and hypoxic respiratory failure. PLAN: This patient will likely need home O2 at the time of discharge. She is currently receiving nebulization therapy. I would stop her IV fluids. She is on oral prednisone. No further recommendations at this time. Job ID: [id number]
[2019-08-22] MEDS: Simvastatin 5 MG TAB PO SCH (20:21)
[2019-08-23 05:44] LABS: #Eosinphils 0.1 thou/uL (0.0-0.7); #Lymphocytes 1.4 thou/uL (1.20-3.40); #Monocytes 1.4 thou/uL (0.11-0.59); #Neutrophils 11.7 thou/uL (1.40-6.50); %Basophils 0.2 % (0.0-1.0); %Eosinophils 0.7 % (0.0-10.0); %Lymphocytes 9.6 % (21.0-51.0); %Monocytes 9.6 % (0.0-10.0); Hemoglobin 13.3 g/dL (12.0-16.0); Mean Corpuscular HGB CONC 30.4 g/dL (32.0-36.0); Mean Corpuscular Hemoglobin 29.8 pg (27.0-31.0); Mean Platelet Volume 7.7 fL (7.4-10.4); Platelet Count 423 thou/uL (130-400); RBC Distribution Width 12.5 % (11.5-14.5); Red Blood Cell (RBC) Count 4.46 mill/uL (4.20-5.40); White Blood Cell (WBC) Count 14.7 thou/uL (4.8-10.8)
[2019-08-23 06:15] LABS: ALT (SGPT) 33 U/L (8-55); AST (SGOT) 14 U/L (5-34); Albumin 3.1 g/dL (3.4-4.8); Alkaline Phosphatase 47 U/L (40-110); Anion Gap 9 mmol/L (10-20); BUN (Urea Nitrogen) 10 mg/dL (9.8-20.1); Bilirubin, Total 0.3 mg/dL (0.2-1.2); Calc. Creatinine Clearance 92 mL/min (70-130); Carbon Dioxide 33 mmol/L (23-31); Chloride 104 mmol/L (98-107); Estimated GFR-MDRD Greater than 90; Globulin 2.1 g/dL (2.4-3.5); Glucose 81 mg/dL (80-115); Potassium 3.5 mmol/L (3.5-5.1); Protein, Total 5.2 g/dL (6.0-8.3); Sodium 142 mmol/L (136-145)
[2019-08-23] MEDS: Arformoterol 15 MCG/2 ML NEB NEB SCH ×2 (07:54→19:01)
[2019-08-23] MEDS: Budesonide 0.5 MG/2 ML NEB INH SCH ×2 (07:58→19:00)
[2019-08-23] MEDS: Ondansetron ODT 4 MG TAB PO PRN (08:38)
[2019-08-23] MEDS: Lisinopril 10 MG TAB PO SCH (08:39)
[2019-08-23] MEDS: predniSONE 20 MG TAB PO SCH (08:39)
[2019-08-23] MEDS: Bupropion 150 MG XL TAB PO SCH (08:39)
[2019-08-23] MEDS: Famotidine/PF 20 mg/2ml Vial SLOW IVP SCH ×2 (08:44→20:52)
--- NOTE | 2019-08-23 09:14 | PRG ---
DATE OF SERVICE: 08/23/2019 SUBJECTIVE: The patient is not getting up out of bed, complains of a headache. OBJECTIVE: VITAL SIGNS: Temperature 98.1, pulse 86, respirations 24, and O2 saturation 93% on 2.5 L. HEENT: Unremarkable. NECK: No adenopathy or JVD. LUNGS: Clear, but distant breath sounds. CARDIAC: S1 and S2. Regular. ABDOMEN: Soft. EXTREMITIES: No edema. LABORATORY DATA: White blood cell count 14.7, hematocrit 43, and platelet count 423. Sodium 142, potassium 3.5, BUN 10, and creatinine 0.6. ASSESSMENT: 1. Chronic obstructive pulmonary disease with exacerbation. 2. Chronic hypercapnic hypoxic respiratory failure. PLAN: Likely needs O2 at the time of discharge. I would treat her with at least a two-week course of steroids. Increase activity as tolerated. No further Pulmonary recommendations at this time. We will sign off. Job ID: [id number]
--- NOTE | 2019-08-23 16:36 | PDOC.HOSPP ---
- Subjective Subjective: Follow up on COPD exacerbation. Unable to wean from oxygen. Recommended placement and rehabilitation facility by physical therapy. Patient feeling profoundly week. Nauseous. At this point I do believe she would benefit from inpatient rehabilitation. - Objective Vital Signs & Weight: Vital Signs (12 hours) Temp Pulse Resp BP BP Pulse Ox 08/23/19 14:23 100 20 92 L 08/23/19 11:40 97.7 F 87 22 H 136/82 94 L 08/23/19 10:53 110 H 22 H 77 L 08/23/19 08:39 162/91 H 08/23/19 08:00 93 L 08/23/19 07:59 86 24 H 93 L 08/23/19 07:58 86 24 H 93 L 08/23/19 07:54 86 24 H 08/23/19 07:48 98.1 F 98 22 H 121/75 90 L Weight Weight 152 lb Most Recent Monitor Data Heart Rate from ECG 91 NIBP 122/71 NIBP BP-Mean 88 Respiration from ECG 21 SpO2 89 I&O: 08/22/19 08/23/19 08/24/19 06:59 06:59 06:59 Intake Total 1065 480 Balance 1065 480 Result Diagrams: 08/23/19 05:16 08/23/19 05:16 Radiology Reviewed by me: Yes Hospitalist ROS - Review of Systems All other systems reviewed; all pertinent +/- noted in HPI/Subj - Medication Medications: Active Medications Generic Name Dose Route Start Last Admin Trade Name Freq PRN Reason Stop Dose Admin Albuterol/Ipratropium 3 ml 08/20/19 02:30 08/23/19 14:23 Duoneb NEB 3 ml [id number] DEMARCUS Administration Arformoterol Tartrate 15 mcg 08/20/19 18:30 08/23/19 07:54 Brovana NEB 15 mcg BID-RT DEMARCUS Administration Budesonide 0.5 mg 08/20/19 18:30 08/23/19 07:58 Pulmicort Neb Solution INH 0.5 mg BID-RT DEMARCUS Administration Bupropion HCl 150 mg 08/23/19 09:00 08/23/19 08:39 Wellbutrin Xl PO 150 mg DAILY DEMARCUS Administration Famotidine 20 mg 08/20/19 09:00 08/23/19 08:44 Pepcid SLOW IVP 20 mg Q12HR DEMARCUS Administration Lisinopril 10 mg 08/23/19 09:00 08/23/19 08:39 Zestril PO 10 mg DAILY DEMARCUS Administration Ondansetron HCl 4 mg 08/20/19 01:31 08/23/19 08:38 Zofran Odt PO 4 mg Q6H PRN Administration Nausea/Vomiting Ondansetron HCl 4 mg 08/20/19 01:31 08/22/19 08:02 Zofran IVP 4 mg Q6H PRN Administration Nausea/Vomiting Prednisone 40 mg 08/21/19 09:00 08/23/19 08:39 Prednisone PO 40 mg DAILY DEMARCUS Administration Simvastatin 10 mg 08/22/19 21:00 08/22/19 20:21 Zocor PO 10 mg HS DEMARCUS Administration Sterile Water 1 ml 08/20/19 01:37 08/21/19 05:20 Bacteriostatic Water FS 1 ml PRN PRN Administration RECONSTITUTION - Exam General Appearance: NAD Eye: anicteric sclera ENT: normocephalic atraumatic, moist mucosa Neck: supple, symmetric, no lymphadenopathy Heart: no murmur, no gallops, no rubs Respiratory: no rales, normal chest expansion, no tachypnea, rhonchi, wheezes Gastrointestinal: soft, non-tender, no guarding, no rigidity Extremities: no edema Skin: no rashes Neurological: cranial nerve grossly intact, no focal deficits Musculoskeletal: generalized weakness Psychiatric: normal affect, A&O x 3 Hosp A/P (1) Acute respiratory failure with hypoxia and hypercapnia Code(s): J96.01 - ACUTE RESPIRATORY FAILURE WITH HYPOXIA; J96.02 - ACUTE RESPIRATORY FAILURE WITH HYPERCAPNIA Status: Acute (2) COPD exacerbation Code(s): J44.1 - CHRONIC OBSTRUCTIVE PULMONARY DISEASE W (ACUTE) EXACERBATION Status: Acute (3) Depression Code(s): F32.9 - MAJOR DEPRESSIVE DISORDER, SINGLE EPISODE, UNSPECIFIED Status : Acute (4) HLD (hyperlipidemia) Code(s): E78.5 - HYPERLIPIDEMIA, UNSPECIFIED Status: Acute (5) HTN (hypertension) Code(s): I10 - ESSENTIAL (PRIMARY) HYPERTENSION Status: Acute (6) Leukocytosis Code(s): D72.829 - ELEVATED WHITE BLOOD CELL COUNT, UNSPECIFIED Status: Acute (7) Tobacco abuse counseling Code(s): Z71.6 - TOBACCO ABUSE COUNSELING Status: Acute - Plan Plan: medical/surgical unit pulmonology consultation, recommendations appreciated physical therapy consultation, recommendations patient Occupational Therapy consultation, recommendations a patient case management consultation, recommendations appreciated patient will require supplemental oxygen on discharge patient has been recommended safe for discharge to rehabilitation facility profoundly weak and debilitated compared to her baseline pulmonary specific antibiotics steroids breathing treatments continue home medications as able G.I. prophylaxis DVT prophylaxis
[2019-08-23] MEDS: Simvastatin 5 MG TAB PO SCH (20:52)
[2019-08-24] MEDS: Arformoterol 15 MCG/2 ML NEB NEB SCH ×2 (06:50→19:24)
[2019-08-24] MEDS: Budesonide 0.5 MG/2 ML NEB INH SCH ×2 (06:50→19:24)
[2019-08-24] MEDS: Ondansetron ODT 4 MG TAB PO PRN (08:04)
[2019-08-24] MEDS: Lisinopril 10 MG TAB PO SCH (08:05)
[2019-08-24] MEDS: predniSONE 20 MG TAB PO SCH (08:05)
[2019-08-24] MEDS: Bupropion 150 MG XL TAB PO SCH (08:05)
[2019-08-24] MEDS: Famotidine/PF 20 mg/2ml Vial SLOW IVP SCH ×3 (08:05→20:39)
--- NOTE | 2019-08-24 12:51 | PDOC.HOSPP ---
- Subjective Subjective: Seen and examined. Follow up on COPD exacerbation. Meaning steroids. Patient states that she is feeling better. She got a shower this morning. Patient states that she is not sleeping well, requesting melatonin restarted. Patient states that she has been depressed, lack of motivation to get healthy and get well. She is on will be trimmed QAM, I will add mirtazapine QHS. Patient states that she is interested in rehabilitation placement. - Objective Vital Signs & Weight: Vital Signs (12 hours) Temp Pulse Resp BP BP BP Pulse Ox 08/24/19 11:28 98.4 F 80 19 132/81 94 L 08/24/19 10:58 91 20 93 L 08/24/19 08:05 154/88 H 08/24/19 07:18 98 F 91 18 154/88 H 93 L 08/24/19 06:50 98 16 92 L 08/24/19 06:47 98 16 92 L 08/24/19 03:49 97.9 F 98 22 H 157/93 H 92 L 08/24/19 02:16 89 16 91 L Weight Weight 152 lb Most Recent Monitor Data Heart Rate from ECG 91 NIBP 122/71 NIBP BP-Mean 88 Respiration from ECG 21 SpO2 89 I&O: 08/23/19 08/24/19 08/25/19 06:59 06:59 06:59 Intake Total 480 360 125 Balance 480 360 125 Result Diagrams: 08/23/19 05:16 08/23/19 05:16 Radiology Reviewed by me: Yes Hospitalist ROS - Review of Systems All other systems reviewed; all pertinent +/- noted in HPI/Subj - Medication Medications: Active Medications Generic Name Dose Route Start Last Admin Trade Name Freq PRN Reason Stop Dose Admin Albuterol/Ipratropium 3 ml 08/20/19 02:30 08/24/19 10:58 Duoneb NEB 3 ml [id number] DEMARCUS Administration Arformoterol Tartrate 15 mcg 08/20/19 18:30 08/24/19 06:50 Brovana NEB 15 mcg BID-RT DEMARCUS Administration Budesonide 0.5 mg 08/20/19 18:30 08/24/19 06:50 Pulmicort Neb Solution INH 0.5 mg BID-RT DEMARCUS Administration Bupropion HCl 150 mg 08/23/19 09:00 08/24/19 08:05 Wellbutrin Xl PO 150 mg DAILY DEMARCUS Administration Famotidine 20 mg 08/20/19 09:00 08/24/19 08:05 Pepcid SLOW IVP 20 mg Q12HR DEMARCUS Administration Lisinopril 10 mg 08/23/19 09:00 08/24/19 08:05 Zestril PO 10 mg DAILY DEMARCUS Administration Ondansetron HCl 4 mg 08/20/19 01:31 08/24/19 08:04 Zofran Odt PO 4 mg Q6H PRN Administration Nausea/Vomiting Ondansetron HCl 4 mg 08/20/19 01:31 08/22/19 08:02 Zofran IVP 4 mg Q6H PRN Administration Nausea/Vomiting Simvastatin 10 mg 08/22/19 21:00 08/23/19 20:52 Zocor PO Not Given HS DEMARCUS Sterile Water 1 ml 08/20/19 01:37 08/21/19 05:20 Bacteriostatic Water FS 1 ml PRN PRN Administration RECONSTITUTION - Exam General Appearance: awake alert Eye: PERRL ENT: normocephalic atraumatic, moist mucosa Neck: supple, symmetric, no lymphadenopathy Heart: no murmur, no gallops, no rubs Respiratory: no rales, no ronchi, normal chest expansion, no tachypnea, wheezes (few faint improved) Gastrointestinal: soft, non-tender, no guarding Extremities: no edema Skin: no lesions, no rashes Neurological: cranial nerve grossly intact, no focal deficits Musculoskeletal: generalized weakness Psychiatric: normal affect, normal behavior, A&O x 3 Hosp A/P (1) Acute respiratory failure with hypoxia and hypercapnia Code(s): J96.01 - ACUTE RESPIRATORY FAILURE WITH HYPOXIA; J96.02 - ACUTE RESPIRATORY FAILURE WITH HYPERCAPNIA Status: Acute (2) COPD exacerbation Code(s): J44.1 - CHRONIC OBSTRUCTIVE PULMONARY DISEASE W (ACUTE) EXACERBATION Status: Acute (3) Depression Code(s): F32.9 - MAJOR DEPRESSIVE DISORDER, SINGLE EPISODE, UNSPECIFIED Status : Acute (4) HLD (hyperlipidemia) Code(s): E78.5 - HYPERLIPIDEMIA, UNSPECIFIED Status: Acute (5) HTN (hypertension) Code(s): I10 - ESSENTIAL (PRIMARY) HYPERTENSION Status: Acute (6) Leukocytosis Code(s): D72.829 - ELEVATED WHITE BLOOD CELL COUNT, UNSPECIFIED Status: Acute (7) Tobacco abuse counseling Code(s): Z71.6 - TOBACCO ABUSE COUNSELING Status: Acute - Plan Plan: medical/surgical unit pulmonology consultation, recommendations appreciated physical therapy consultation, recommendations patient Occupational Therapy consultation, recommendations a patient case management consultation, recommendations appreciated patient will require supplemental oxygen on discharge patient has been recommended safe for discharge to rehabilitation facility profoundly weak and debilitated compared to her baseline pulmonary specific antibiotics steroids, wean today breathing treatments Adjust depression regimen Melatonin QHS for insomnia continue home medications as able G.I. prophylaxis DVT prophylaxis
[2019-08-24] MEDS: Simvastatin 5 MG TAB PO SCH (20:32)
[2019-08-24] MEDS: Famotidine 20 MG TAB PO SCH (20:46)
[2019-08-24] MEDS ORDERED: Melatonin 3 MG TAB PO SCH (21:00)
[2019-08-24] MEDS ORDERED: Mirtazapine 15 MG Soltab PO SCH (21:00)
[2019-08-25] MEDS: Arformoterol 15 MCG/2 ML NEB NEB SCH (06:48)
[2019-08-25] MEDS: Budesonide 0.5 MG/2 ML NEB INH SCH (06:48)
[2019-08-25] MEDS: Lisinopril 10 MG TAB PO SCH (08:12)
[2019-08-25 08:13] VITALS: BP 144/86
[2019-08-25] MEDS: Famotidine 20 MG TAB PO SCH (08:13)
[2019-08-25] MEDS: Bupropion 150 MG XL TAB PO SCH (08:13)
[2019-08-25 08:28] VITALS: TEMP 98.6
[2019-08-25] MEDS ORDERED: predniSONE 20 MG TAB PO SCH (09:00)
--- NOTE | 2019-08-25 11:28 | PDOC.HOSPP ---
- Subjective Encounter Date: 08/25/19 Encounter Time: 11:26 Subjective: Patient seen and examined for Resp failure. SOB improving. Dry cough. No new complaints. No overnight events - Objective Vital Signs & Weight: Vital Signs (12 hours) Temp Pulse Resp BP BP BP Pulse Ox 08/25/19 10:47 90 20 95 08/25/19 08:27 98.6 F 90 20 144/86 H 95 08/25/19 08:12 144/86 H 08/25/19 08:00 95 08/25/19 06:48 107 H 20 92 L 08/25/19 06:45 107 H 20 92 L 08/25/19 00:30 97.9 F 97 18 153/83 H 92 L Weight Weight 152 lb Most Recent Monitor Data Heart Rate from ECG 91 NIBP 122/71 NIBP BP-Mean 88 Respiration from ECG 21 SpO2 89 I&O: 08/24/19 08/25/19 08/26/19 06:59 06:59 06:59 Intake Total 360 845 240 Balance 360 845 240 Result Diagrams: 08/23/19 05:16 08/23/19 05:16 Radiology Reviewed by me: Yes (CXR - negative) Hospitalist ROS - Review of Systems Cardiovascular: denies: chest pain, palpitations, orthopnea, paroxysmal noc. dyspnea, edema, light headedness, other Gastrointestinal: denies: nausea, vomiting, abdominal pain, diarrhea, constipation, melena, hematochezia, other - Medication Medications: Active Medications Generic Name Dose Route Start Last Admin Trade Name Freq PRN Reason Stop Dose Admin Albuterol/Ipratropium 3 ml 08/20/19 02:30 08/25/19 10:47 Duoneb NEB 3 ml [id number] DEMARCUS Administration Arformoterol Tartrate 15 mcg 08/20/19 18:30 08/25/19 06:48 Brovana NEB 15 mcg BID-RT DEMARCUS Administration Budesonide 0.5 mg 08/20/19 18:30 08/25/19 06:48 Pulmicort Neb Solution INH 0.5 mg BID-RT DEMARCUS Administration Bupropion HCl 150 mg 08/23/19 09:00 08/25/19 08:13 Wellbutrin Xl PO 150 mg DAILY DEMARCUS Administration Famotidine 20 mg 08/24/19 21:00 08/25/19 08:13 Pepcid PO 20 mg BID DEMARCUS Administration Lisinopril 10 mg 08/23/19 09:00 08/25/19 08:12 Zestril PO 10 mg DAILY DEMARCUS Administration Melatonin 6 mg 08/24/19 21:00 08/24/19 20:32 Melatonin PO 6 mg HS DEMARCUS Administration Mirtazapine 15 mg 08/24/19 21:00 08/24/19 20:33 Remeron Soltab PO 15 mg HS DEMARCUS Administration Ondansetron HCl 4 mg 08/20/19 01:31 08/24/19 08:04 Zofran Odt PO 4 mg Q6H PRN Administration Nausea/Vomiting Ondansetron HCl 4 mg 08/20/19 01:31 08/22/19 08:02 Zofran IVP 4 mg Q6H PRN Administration Nausea/Vomiting Prednisone 30 mg 08/25/19 09:00 08/25/19 08:12 Prednisone PO 30 mg DAILY DEMARCUS Administration Simvastatin 10 mg 08/22/19 21:00 08/24/19 20:32 Zocor PO 10 mg HS DEMARCUS Administration Sterile Water 1 ml 08/20/19 01:37 08/21/19 05:20 Bacteriostatic Water FS 1 ml PRN PRN Administration RECONSTITUTION - Exam General Appearance: NAD Neck: supple, no JVD Heart: no gallops, no rubs Respiratory: no rales, rhonchi, wheezes Gastrointestinal: non-tender, non-distended, normal bowel sounds Hosp A/P - Plan DVT proph w/SCDs Acute hypoxic/hypercapneic resp failure COPD exacerbation Physical deconditioning Tobacco abuse - quit before admission HTN HLD PLAN: [facility] eval Cont Nebs Q4h Cont PO Prednisone Arrange [facility] - Patient refusing SNF/Rehab Home O2 setup Cont other meds Cont PT/OT
[2019-08-25] MEDS ORDERED: cloNIDine 0.1 MG TAB PO PRN (11:30)
[2019-08-25] MEDS ORDERED: Senokot 8.6 MG TAB PO PRN (11:33)
--- NOTE | 2019-08-25 14:29 | DIS ---
DATE OF ADMISSION: 08/19/2019 DATE OF DISCHARGE: 08/25/2019 DISCHARGE DISPOSITION: To inpatient rehabilitation. DISCHARGE MEDICATIONS: 1. Prednisone taper. 2. Pravastatin 20 mg at bedtime. 3. Nebulizer treatment every 4 hours. 4. Brovana twice daily. 5. Wellbutrin extended-release 150 mg daily. 6. Calcium with vitamin D twice daily. 7. Pepcid 20 mg twice daily for next 2 to 3 weeks. This can be discontinued once she is off steroids. 8. Remeron 15 mg at bedtime. 9. Multivitamin one tablet daily. 10. Benadryl as needed. 11. Tylenol as needed. 12. Clonidine as needed. INPATIENT BEHAVIORAL ASSISTANT: 1. Pulmonary, Dr. Peterson. 2. The patient was advised to follow up with Dr. Patti Benedict's office in 1 week. 3. Follow up with Pulmonary as scheduled. 4. The patient was seen and examined on the day of discharge. Please refer to my progress note for details. BRIEF HOSPITAL COURSE: The patient is a 69-year-old female with COPD with ongoing tobacco abuse, presented to the hospital with shortness of breath. Please refer to the history and physical for further details. The patient was admitted to the hospital with a diagnosis of acute hypoxic respiratory failure, requiring noninvasive positive pressure ventilation. She was monitored in the intermediate care unit. She was also seen by Pulmonary, Dr. Peterson. Her symptoms gradually improved with above measures. She was later transferred to the medical floor. She completed antibiotics. She will complete prednisone taper at the rehab. Due to physical deconditioning, she will benefit from a short course of rehab. DIAGNOSTIC TESTS: Blood cultures negative. Influenza screen negative. ABG showed pH of 7.25 with pCO2 of 71.9, pO2 of 69.6 with bicarbonate of 31.1. Lactic acid 1.6. WBC on admission 17.9. FINAL DIAGNOSES: 1. Acute hypoxic and hypercapnic respiratory failure secondary to chronic obstructive pulmonary disease exacerbation. 2. Ongoing tobacco abuse, the patient was counseled. 3. Hypertension. 4. Hyperlipidemia. 5. Physical deconditioning. 6. Morphine and codeine allergy. 7. Chronic kidney disease, stage 2. 8. Suspected urinary tract infection. No cultures were sent. 9. Anxiety. Total time coordinating the discharge of this patient was 37 minutes. The patient understands the above plan of care. Job ID: [id number]
[2019-08-25] MEDS ORDERED: Calcium Carbonate + Vit D 1 TAB PO SCH (17:00)
[2019-08-26] MEDS ORDERED: Multivit, Therapeutic 1 TAB PO SCH (09:00)
--- NOTE | 2019-08-26 10:49 | PQF ---
CURRY WOODWARD CHARLES DO [id number] CLINICAL DOCUMENTATION CLARIFICATION FORM: POST DISCHARGE Addendum to original discharge summary date: ____ Late entry note date: __ Please query Dr. Reynolds as he was the discharging physician. Thank you DATE:08/26/2019 ATTN: FRANSISCO CAMARGO DO Please exercise your independent, professional judgment in responding to the clarification form. Clinical indicators are provided on the bottom of this form for your review Please check appropriate box(es): [ ] Sepsis due to: (Pna, UTI, gangrenous gall bladder, etc.) Due to: [ ] Device (please specify) [ ] Implant [ ] Graft [ ] Infusion [ ] SIRS due to non-infectious process (please specify etiology) [ ] with organ dysfunction [ ] without organ dysfunction [ ] Severe sepsis with acute organ dysfunction of: (Examples: respiratory failure, encephalopathy, acute kidney failure, other) [ ] Septic Shock [ ] Localized infection without sepsis [ ] Other diagnosis [ ] Unable to determine In addition, please specify: Present on Admission (POA): [ ] Yes [ ] No [ ] Unable to determine For continuity of documentation, please document condition throughout progress notes and discharge summary. Thank You. CLINICAL INDICATORS - SIGNS / SYMPTOMS / LABS [id number] in ED on 08/19 by Tony Shannon SIRS scoring:Respiratory rate >20/ min, Randy<32 mmhg, Heart rate>90-Documented in ED on 08/19 by Tony Shannon WBC-17.9-Documented in H&P on 08/19 by Fransisco Camargo Acute hypoxic hypercapnic respiratory failure -Documented in H&P on 08/19 by Fransisco Camargo Acute COPD exacerbation-Documented in H&P on 08/19 by Fransisco Camargo Suspected urinary tract infection -Documented in Discharge summary on 08/25 by Chandan Reynolds RISK FACTORS Acute hypoxic hypercapnic respiratory failure -Documented in H&P on 08/19 by Fransisco Camargo Acute COPD exacerbation-Documented in H&P on 08/19 by Fransisco Camargo Suspected urinary tract infection -Documented in Discharge summary on 08/25 by Chandan Reynolds TREATMENTS: Continue Levaquin 750 mg IV-Documented in H&P on 08/19 by Fransisco Camargo [employer] 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 All Rights Reserved [email or web address]
--- NOTE | 2019-08-30 23:20 | PQF ---
CURRY WOODWARD MALIK MD [id number] CLINICAL DOCUMENTATION CLARIFICATION FORM: POST DISCHARGE Addendum to original discharge summary date: ____ Late entry note date: __ DATE:08/30/2019 ATTN: NEGRITA REYNOLDS MD Please exercise your independent, professional judgment in responding to the clarification form. Clinical indicators are provided on the bottom of this form for your review Please check appropriate box(es): [ ] Sepsis due to: (Pna, UTI, gangrenous gall bladder, etc.) Due to: [ ] Device (please specify) [ ] Implant [ ] Graft [ ] Infusion [ ] SIRS due to non-infectious process (please specify etiology) [ ] with organ dysfunction [ ] without organ dysfunction [x] Severe sepsis due to UTI/COPD exacerbation with acute organ dysfunction of respiratory failure [ ] Septic Shock [ ] Localized infection without sepsis [ ] Other diagnosis [ ] Unable to determine In addition, please specify: Present on Admission (POA): [ x ] Yes [ ] No [ ] Unable to determine For continuity of documentation, please document condition throughout progress notes and discharge summary. Thank You. CLINICAL INDICATORS - SIGNS / SYMPTOMS / LABS Iuxy-[id number] in ED on 08/19 by Tony Swan SIRS scoring:Respiratory rate >20/min, Joseluis<32 mmhg, Heart rate>90-Documented in ED on 08/19 by Tony Swan WBC-17.9-Documented in H&P on 08/19 by Chan Moody Acute hypoxic hypercapnic respiratory failure--Documented in H&P on 08/19 by Chan Moody Acute copd exacerbation-Documented in H&P on 08/19 by Chan Moody Leukocytosis-Documented in Hospitalist progress note on 08/24 by Babak Pozo DO Suspected urinary tract infection-Documented in discharge summary on 08/25 by Negrita Reynolds Blood cultures negative -Documented in discharge summary on 08/25 by Negrita Reynolds Lactic acid -1.6-Documented in discharge summary on 08/25 by Negrita Reynolds RISK FACTORS Acute hypoxic hypercapnic respiratory failure--Documented in H&P on 08/19 by Chan Moody Acute copd exacerbation-Documented in H&P on 08/19 by Chan Moody Suspected urinary tract infection-Documented in discharge summary on 08/25 by Negrita Reynolds TREATMENTS: Continue Levaquin 750 mg IV-Documented in H&P on 08/19 by Chan Moody Pulmonary specific antibiotics -Documented in discharge summary on 08/25 by Roma Reynolds [employer] Win[employer] (This form is maintained as a part of the permanent medical record) 2014 [employer]. All Rights Reserved [email or web address] [phone] MTDD
== END 2019-08-25 16:06 | DRG 871 ==
LOC: ERS 20:05 → IMCU/EMU 23:00 → T4-A 08-20 18:08
PROVIDERS: ADMIT Family Medicine; ATTEND Family Medicine
PROC: 5A09357 Assistance with Respiratory Ventilation, Less than 24 Consecutive Hours, Continuous Positive Airway Pressure (ICD-10-PCS; principal; 2019-08-19)
DX: A41.9 Sepsis, unspecified organism (principal); J96.02 Acute respiratory failure with hypercapnia; J96.01 Acute respiratory failure with hypoxia; J44.1 Chronic obstructive pulmonary disease with (acute) exacerbation; N39.0 Urinary tract infection, site not specified; E87.2 Acidosis; R65.20 Severe sepsis without septic shock; R65.10 Systemic inflammatory response syndrome (SIRS) of non-infectious origin without acute organ dysfunction; E78.5 Hyperlipidemia, unspecified; I12.9 Hypertensive chronic kidney disease with stage 1 through stage 4 chronic kidney disease, or unspecified chronic kidney disease; N18.2 Chronic kidney disease, stage 2 (mild); F41.9 Anxiety disorder, unspecified; F17.210 Nicotine dependence, cigarettes, uncomplicated; Z71.6 Tobacco abuse counseling; F32.9 Major depressive disorder, single episode, unspecified; D72.829 Elevated white blood cell count, unspecified; Z71.9 Counseling, unspecified; Z88.5 Allergy status to narcotic agent
CPT/HCPCS: 36415; 80048; 80053; 81003; 81015; 82805; 84145; 84484; 85007; 85025; 85027; 93005; 94640; 94660; 99292; J1956; J2405; J2920; J7512; J7620; J7626; Q0162; S0028

== ENCOUNTER 2019-10-12 15:13 | Outpatient (CLI) | payer MEDICARE, OTHER ==
--- NOTE | 2019-10-12 15:27 | RAD ---
Chest 2 views HISTORY: Dyspnea. COMPARISON: 08/19/2019. FINDINGS: Cardiac silhouette is unremarkable. Pulmonary vasculature are within normal limits. Lungs r emain hyperinflated with flattening of each hemidiaphragm. Mediastinum is midline with aortic calcification. No lobar consolidation or evidence of pneumothorax. IMPRESSION : Atherosclerosis. Pulmonary hyperinflation.
== END 2019-10-12 15:14 | disposition home or self-care (01) ==
LOC: RAD 15:13
PROVIDERS: ATTEND Internal Medicine Critical Care Medicine
DX: R06.00 Dyspnea, unspecified (principal); R91.8 Other nonspecific abnormal finding of lung field; I70.0 Atherosclerosis of aorta
CPT/HCPCS: 71046

== ENCOUNTER 2021-04-16 08:49 | Outpatient (CLI) | payer MEDICARE, OTHER | END 2021-04-16 08:50 | disposition home or self-care (01) | LOC: BICMAMMO 08:49 | PROVIDERS: ATTEND Registered Nurse | DX: Z12.31 Encounter for screening mammogram for malignant neoplasm of breast (principal); Z12.2 Encounter for screening for malignant neoplasm of respiratory organs; Z78.0 Asymptomatic menopausal state; Z13.820 Encounter for screening for osteoporosis; Z80.3 Family history of malignant neoplasm of breast; Z87.891 Personal history of nicotine dependence; J43.9 Emphysema, unspecified; M85.89 Other specified disorders of bone density and structure, multiple sites; M81.0 Age-related osteoporosis without current pathological fracture | CPT/HCPCS: 71271; 77063; 77067; 77080 ==

== ENCOUNTER 2021-06-12 14:31 | Outpatient (CLI) | payer MEDICARE, OTHER ==
[2021-06-13 10:59] LABS: SARS-CoV-2 PCR by NAA Not Detected (NotDetected)
== END 2021-06-12 14:32 | disposition home or self-care (01) ==
LOC: LABBT 14:31
PROVIDERS: ATTEND Internal Medicine Gastroenterology
DX: Z01.812 Encounter for preprocedural laboratory examination (principal); Z86.010 Personal history of colon polyps; Z20.822 Contact with and (suspected) exposure to COVID-19
CPT/HCPCS: U0003; U0005

== ENCOUNTER 2021-06-14 10:13 | Day surgery (SDC) | payer MEDICARE, OTHER ==
[2021-06-13 11:42] VITALS: BMI 31.8
[2021-06-14] MEDS ORDERED: Albuterol Sulfate HFA (OR ONLY) ONE (12:37)
[2021-06-14] MEDS ORDERED: Ketamine 50 MG/ML (10ML VIAL) ONE (12:37)
== END 2021-06-14 15:25 | disposition home or self-care (01) ==
LOC: SDC 10:13
PROVIDERS: ATTEND Internal Medicine Gastroenterology
PROC: 0DBL8ZX Excision of Transverse Colon, Via Natural or Artificial Opening Endoscopic, Diagnostic (ICD-10-PCS; principal; 2021-06-14)
PROC: 0DBP8ZX Excision of Rectum, Via Natural or Artificial Opening Endoscopic, Diagnostic (ICD-10-PCS; 2021-06-14)
PROC: 0DBL8ZX Excision of Transverse Colon, Via Natural or Artificial Opening Endoscopic, Diagnostic (ICD-10-PCS; 2021-06-14)
PROC: 0DBN8ZX Excision of Sigmoid Colon, Via Natural or Artificial Opening Endoscopic, Diagnostic (ICD-10-PCS; 2021-06-14)
PROC: 3E0H8KZ Introduction of Other Diagnostic Substance into Lower GI, Via Natural or Artificial Opening Endoscopic (ICD-10-PCS; 2021-06-14)
DX: Z12.11 Encounter for screening for malignant neoplasm of colon (principal); D12.3 Benign neoplasm of transverse colon; D12.5 Benign neoplasm of sigmoid colon; D12.8 Benign neoplasm of rectum; K57.30 Diverticulosis of large intestine without perforation or abscess without bleeding; Q43.8 Other specified congenital malformations of intestine; K64.8 Other hemorrhoids; K64.4 Residual hemorrhoidal skin tags; I10 Essential (primary) hypertension; J44.9 Chronic obstructive pulmonary disease, unspecified; Z86.010 Personal history of colon polyps; Z79.82 Long term (current) use of aspirin; Z79.83 Long term (current) use of bisphosphonates; Z79.899 Other long term (current) drug therapy; Z88.5 Allergy status to narcotic agent
CPT/HCPCS: 88305

== ENCOUNTER 2021-06-20 15:47 | Inpatient (IN) | payer MEDICARE, OTHER ==
[~2021-06-20 15:47] MED LIST: Iopamidol-370 76% 500 ML 1 ML ONE
[2021-06-20] MEDS ORDERED: cefTRIAXone\\ROCEPHIN 2 GM VIAL ONE ×2 (16:16→16:19)
[2021-06-20] MEDS ORDERED: predniSONE 20 MG TAB ONE (16:16)
[2021-06-20] MEDS ORDERED: Magnesium 2 GM/50 ML BAG (IN WATER) ONE (16:16)
[2021-06-20] MEDS ORDERED: Azithromycin 500 MG VIAL ONE (16:16)
[2021-06-20] MEDS ORDERED: PROVENTIL INHALER 6.7 G (200 INHALATIONS) ONE (16:16)
[2021-06-20] MEDS ORDERED: Azithromycin 250 MG TAB ONE ×2 (16:17→16:26)
[2021-06-20] MEDS ORDERED: Albuterol 200 PUFF (6.7GM INHALER) ONE (16:19)
[2021-06-20 16:30] LABS: Hemoglobin 14.1 g/dL (12.0-16.0); Mean Corpuscular HGB CONC 30.4 g/dL (32.0-36.0); Mean Corpuscular Hemoglobin 30.2 pg (27.0-31.0); Mean Corpuscular Volume 99.4 fL (78.0-98.0); Mean Platelet Volume 7.2 fL (7.4-10.4); Platelet Count 669 thou/uL (130-400); RBC Distribution Width 12.8 % (11.5-14.5); Red Blood Cell (RBC) Count 4.68 mill/uL (4.20-5.40)
[2021-06-20 16:52] LABS: ALT (SGPT) 149 U/L (8-55); AST (SGOT) 82 U/L (5-34); Albumin 4.3 g/dL (3.4-4.8); Alkaline Phosphatase 181 U/L (40-110); Anion Gap 14 mmol/L (10-20); BUN (Urea Nitrogen) 23 mg/dL (9.8-20.1); Band 33 % (5-11); Bilirubin, Total 0.5 mg/dL (0.2-1.2); Calc. Creatinine Clearance 0 mL/min (70-130); Calcium 9.5 mg/dL (7.8-10.44); Carbon Dioxide 37 mmol/L (23-31); Chloride 94 mmol/L (98-107); Globulin 2.7 g/dL (2.4-3.5); Glucose 120 mg/dL (80-115); Lymphocytes 3 % (21-51); MDiff Complete? YES; Monocytes 13 % (0-10); Neutrophil 49 % (42-75); Platelet Morphology Comment Appears Increased; Potassium 4.3 mmol/L (3.5-5.1); RBC Morphology Normal; Reactive Lymphocytes 2 % (0-10); Sodium 141 mmol/L (136-145)
[2021-06-20 17:02] LABS: Analyzer IN Cardio ER; Base Excess 5.1 mEq/L (-2.0 to +3.0); Calcium, Ionized (venous) 1.03 mmol/L (1.16-1.32); Chloride (VBG) 94 mmol/L (98-106); Hemoglobin (Hb) 15.8 g/dL (11.7-16.1); Potassium (VBG) 6.18 mmol/L (3.70-5.30); Sodium 137.7 mmol/L (133-146); pH (venous) 7.31 (7.32-7.43)
[2021-06-20 17:03] LABS: Actual Bicarbonate (HCO3v) 34 mEq/L (22-28)
[2021-06-20 18:02] LABS: SARS-CoV-2 NAA Rapid Test Not Detected (NotDetected)
[2021-06-20 18:19] LABS: Bilirubin Negative (Negative); Blood, Urine Trace (Negative); Clarity Clear (Clear); Glucose, Urine (Dipstick) Normal (Negative); Ketone, Urine Negative (Negative); Leukocyte 500 Leu/uL (Negative); Nitrite Negative (Negative); Protein, Urine (Dipstick) 20 mg/dL (Neg-Trace); RBC/HPF 0-3 HPF (0-3); Specific Gravity, Urine 1.019 (1.002-1.036); Urobilinogen 3 mg/dL (Less than 2); WBC/HPF 21-50 HPF (0-3); pH, Urine 5.5 (5.0-9.0)
[2021-06-20] MEDS ORDERED: Melatonin 3 MG TAB PO PRN (18:19)
[2021-06-20 18:20] LABS: Bacteria/HPF 1+ HPF (None Seen)
[2021-06-20] MEDS ORDERED: Acetaminophen 325 MG TAB PO PRN (18:59)
[2021-06-20] MEDS ORDERED: Bisacodyl 5 MG TAB PO PRN (18:59)
[2021-06-20] MEDS ORDERED: Senokot S 8.6-50 MG TAB PO PRN (18:59)
[2021-06-20] MEDS ORDERED: Guaifenesin DM 100-10/5 ML UDCUP PO PRN (18:59)
[2021-06-20] MEDS ORDERED: Ondansetron PF 4 MG/2 ML Vial IVP PRN (18:59)
[2021-06-20] MEDS ORDERED: Enoxaparin Sodium 40 MG/0.4 ML SYRINGE SC SCH (19:00)
[2021-06-20] MEDS ORDERED: hydrALAZINE 20 MG/ML VIAL SLOW IVP PRN (19:02)
[2021-06-20 19:35] LABS: Lactic Acid 1.1 mmol/L (0.5-2.2)
[2021-06-20] MEDS ORDERED: Albuterol Sulfate 1.25 MG/3 ML NEB NEB PRN (19:59)
[2021-06-20 20:38] VITALS: BMI 30.5
[2021-06-20] MEDS ORDERED: Famotidine/PF 20 mg/2ml Vial SLOW IVP SCH ×2 (21:00)
[2021-06-20] MEDS ORDERED: Mirtazapine 15 MG Soltab PO SCH (21:00)
[2021-06-20] MEDS ORDERED: Simvastatin 10 MG TAB PO SCH (21:00)
[2021-06-20] MEDS: methylPREDNISolone Sod Succ 40 MG VIAL IVP SCH (23:38)
[2021-06-21] MEDS: methylPREDNISolone Sod Succ 40 MG VIAL IVP SCH ×2 (05:46→13:14)
[2021-06-21 05:47] LABS: #Lymphocytes 0.9 thou/uL (1.20-3.40); #Monocytes 0.6 thou/uL (0.11-0.59); %Basophils 0.2 % (0.0-1.0); %Eosinophils 0.2 % (0.0-10.0); %Lymphocytes 4.9 % (21.0-51.0); %Monocytes 3.1 % (0.0-10.0); %Neutrophils 91.6 % (42.0-75.0); Hemoglobin 13.5 g/dL (12.0-16.0); Mean Corpuscular HGB CONC 31.6 g/dL (32.0-36.0); Mean Corpuscular Hemoglobin 31.5 pg (27.0-31.0); Mean Corpuscular Volume 99.8 fL (78.0-98.0); Mean Platelet Volume 7.3 fL (7.4-10.4); Platelet Count 531 thou/uL (130-400); RBC Distribution Width 12.5 % (11.5-14.5); Red Blood Cell (RBC) Count 4.27 mill/uL (4.20-5.40); White Blood Cell (WBC) Count 17.4 thou/uL (4.8-10.8)
[2021-06-21 06:02] LABS: ALT (SGPT) 132 U/L (8-55); AST (SGOT) 61 U/L (5-34); Albumin 3.7 g/dL (3.4-4.8); Alkaline Phosphatase 146 U/L (40-110); Anion Gap 13 mmol/L (10-20); BUN (Urea Nitrogen) 16 mg/dL (9.8-20.1); Bilirubin, Total 0.3 mg/dL (0.2-1.2); Calc. Creatinine Clearance 87 mL/min (70-130); Calcium 8.8 mg/dL (7.8-10.44); Carbon Dioxide 34 mmol/L (23-31); Chloride 98 mmol/L (98-107); Globulin 3.1 g/dL (2.4-3.5); Glucose 128 mg/dL (80-115); Potassium 3.7 mmol/L (3.5-5.1); Protein, Total 6.8 g/dL (5.8-8.1); Sodium 141 mmol/L (136-145)
[2021-06-21 06:20] LABS: Free Thyroxine Index 1.65 (1.4-3.1); T4 6.6 ug/dL (4.87-11.72); Thyroid Stimulating Hormone 0.1883 uIU/mL (0.35-4.94)
[2021-06-21] MEDS ORDERED: Aspirin 81 mg Enteric Coated Tablet PO SCH (09:00)
[2021-06-21] MEDS ORDERED: Enoxaparin Sodium 40 MG/0.4 ML SYRINGE SC SCH (09:00)
[2021-06-21] MEDS ORDERED: Hydrochlorothiazide 25 MG TAB PO SCH (09:00)
[2021-06-21] MEDS ORDERED: Bupropion 150 MG XL TAB PO SCH (09:00)
[2021-06-21 11:33] VITALS: BP 118/65; TEMP 98.5
[2021-06-21] MEDS ORDERED: Azithromycin 500 MG in Sodium Chloride 0.9% 250 ML 250 ML IVPB SCH (14:00)
[2021-06-21] MEDS ORDERED: cefTRIAXone\\ROCEPHIN 2 GM in Sodium Chloride 0.9% 100 ML IVPB SCH (16:00)
[2021-06-22] MEDS ORDERED: predniSONE 20 MG TAB PO SCH (08:00)
[2021-06-23] MEDS ORDERED: FLU VACC QS2021-22(65YR UP)/PF 240 MCG/0.7 ML SYRINGE IM ONE (09:00)
== END 2021-06-21 14:35 | disposition home or self-care (01) | DRG 189 ==
LOC: ERS 15:47 → 2NO 17:33
PROVIDERS: ADMIT Internal Medicine; ATTEND Internal Medicine
DX: J96.21 Acute and chronic respiratory failure with hypoxia (principal); J44.1 Chronic obstructive pulmonary disease with (acute) exacerbation; J96.22 Acute and chronic respiratory failure with hypercapnia; E78.5 Hyperlipidemia, unspecified; D72.825 Bandemia; I10 Essential (primary) hypertension; F32.A Depression, unspecified; E07.9 Disorder of thyroid, unspecified; Z79.899 Other long term (current) drug therapy; Z79.82 Long term (current) use of aspirin; Z88.5 Allergy status to narcotic agent; Z87.891 Personal history of nicotine dependence
CPT/HCPCS: 0240U; 36415; 71045; 71275; 80053; 81003; 81015; 82805; 83605; 83880; 84436; 84443; 84479; 84484; 85025; 85379; 87040; 93005; 93306; 94640; 96365; 96368; J0456; J0696; J1650; J2920; J3475; J7512; J7620; Q9967; S0028

== ENCOUNTER 2022-01-02 13:13 | Outpatient (CLI) | payer MEDICARE, OTHER ==
[~2022-01-02 13:13] MED LIST changes: +Iopamidol 370 76% 100 ML VIAL ONE; -Iopamidol-370 76% 500 ML 1 ML ONE
== END 2022-01-02 13:14 | disposition home or self-care (01) ==
LOC: CT 13:13
PROVIDERS: ATTEND Registered Nurse
DX: E04.2 Nontoxic multinodular goiter (principal); R22.1 Localized swelling, mass and lump, neck; E07.89 Other specified disorders of thyroid
CPT/HCPCS: 70491; 82565; Q9967

== ENCOUNTER 2022-01-25 12:51 | Outpatient (CLI) | payer MEDICARE, OTHER ==
[2022-01-25 14:16] LABS: Hemoglobin 15.2 g/dL (12.0-15.5); Mean Corpuscular Hemoglobin 29.7 pg (27.0-33.0); Mean Corpuscular Volume 95.9 fl (81.6-98.3); Mean Platelet Volume 10.1 fl (7.4-10.4); Platelet Count 443 10x3/uL (150-450); RBC Distribution Width 13.6 % (11.5-14.5); Red Blood Cell (RBC) Count 5.12 10x6/uL (3.90-5.03); White Blood Cell (WBC) Count 11.3 10x3/uL (3.5-10.5)
[2022-01-25 14:36] LABS: Anion Gap 19 mmol/L (10-20); BUN (Urea Nitrogen) 9 mg/dL (9.8-20.1); Calc. Creatinine Clearance 0 mL/min (70-130); Calcium 9.6 mg/dL (7.8-10.44); Carbon Dioxide 26 mmol/L (23-31); Chloride 106 mmol/L (98-107); Estimated GFR 79; Glucose 89 mg/dL (83-110); Potassium 4.7 mmol/L (3.5-5.1); Sodium 146 mmol/L (136-145)
== END 2022-01-25 12:52 | disposition home or self-care (01) ==
LOC: LABBT 12:51
PROVIDERS: ATTEND Otolaryngology Plastic Surgery within the Head & Neck
DX: Z01.818 Encounter for other preprocedural examination (principal); E04.9 Nontoxic goiter, unspecified; E04.1 Nontoxic single thyroid nodule; R13.10 Dysphagia, unspecified; Z20.822 Contact with and (suspected) exposure to COVID-19
CPT/HCPCS: 80048; 85027; 87811; 93005; 93010

== ENCOUNTER 2022-01-30 11:26 | Observation (INO) | payer MEDICARE, OTHER ==
[2022-01-30] MEDS ORDERED: Lidocaine 1% w/Epinephrine 1:100K 20 ML VIAL ONE (13:02)
[2022-01-30] MEDS ORDERED: Famotidine/PF 20 mg/2ml Vial ONE (13:14)
[2022-01-30] MEDS ORDERED: fentaNYL Citrate/PF 100 MCG/2 ML SYRINGE ONE (13:14)
[2022-01-30] MEDS ORDERED: Ondansetron PF 4 MG/2 ML Vial ONE ×2 (14:14→17:40)
[2022-01-30] MEDS ORDERED: Succinylcholine 200 MG/10 ml SYRINGE FS ONE (14:14)
[2022-01-30] MEDS ORDERED: Dexamethasone 20 MG/5 ML VIAL ONE (14:14)
[2022-01-30] MEDS ORDERED: Lidocaine 1% PF 5 ML VIAL ONE (14:14)
[2022-01-30] MEDS ORDERED: ePHEDrine 50 MG/ML VIAL ONE (14:14)
[2022-01-30] MEDS ORDERED: PROPOFOL 200 MG/20 ML VIAL ONE (14:14)
[2022-01-30] MEDS ORDERED: Rocuronium Bromide 10 MG/ML (10ML VIAL) ONE (14:14)
[2022-01-30] MEDS ORDERED: Labetalol HCl 100 MG/20 ML VIAL ONE (14:14)
[2022-01-30] MEDS ORDERED: Meperidine HCl/PF 25 MG/ML VIAL SLOW IVP PRN (14:44)
[2022-01-30] MEDS ORDERED: Promethazine HCl 25 MG/ML VIAL IVPB PRN (14:44)
[2022-01-30] MEDS ORDERED: Fentanyl 100 MCG/2 ML VIAL ONE (16:43)
[2022-01-30] MEDS ORDERED: Ondansetron PF 4 MG/2 ML Vial IVP SCH (16:45)
[2022-01-30] MEDS ORDERED: Albuterol Sulfate 2.5 mg/0.5 ml Neb NEB PRN (16:53)
[2022-01-30] MEDS ORDERED: Melatonin 3 MG TAB PO PRN (16:54)
[2022-01-30] MEDS ORDERED: traMADol HCl 50 MG TAB PO PRN ×2 (17:01)
[2022-01-30] MEDS ORDERED: Ondansetron PF 4 MG/2 ML Vial IVP PRN (17:02)
[2022-01-30 19:57] VITALS: BMI 34.3
[2022-01-30] MEDS ORDERED: Simvastatin 10 MG TAB PO SCH (21:00)
[2022-01-30] MEDS ORDERED: Mirtazapine 15 MG Soltab PO SCH (21:00)
[2022-01-30] MEDS: Sodium Chloride 0.45% 1,000 ML IV SCH (21:39)
[2022-01-30] MEDS: Oxybutynin 5 MG TAB PO SCH (21:39)
[2022-01-30] MEDS: CEFAZOLIN 1 GM in Sodium Chloride 0.9% 100 ML IVPB SCH (21:48)
[2022-01-30] MEDS ORDERED: CEFAZOLIN 1 GM VIAL IVPB SCH (22:00)
[2022-01-31] MEDS ORDERED: HYDROcodone/Acetaminophen 5/325 mg Tablet PO PRN (00:54)
[2022-01-31] MEDS ORDERED: Ibuprofen 600 MG TAB PO PRN (00:55)
[2022-01-31] MEDS: Acetaminophen 325 MG TAB PO SCH ×2 (01:25→06:13)
[2022-01-31] MEDS: CEFAZOLIN 1 GM in Sodium Chloride 0.9% 100 ML IVPB SCH (06:13)
[2022-01-31] MEDS: Sodium Chloride 0.45% 1,000 ML IV SCH ×2 (06:13→09:08)
[2022-01-31 08:15] VITALS: BP 137/80; TEMP 97.7
[2022-01-31] MEDS ORDERED: Hydrochlorothiazide 25 MG TAB PO SCH (09:00)
[2022-01-31] MEDS ORDERED: BIOTIN 1 MG PO SCH (09:00)
[2022-01-31] MEDS ORDERED: Lisinopril 10 MG TAB PO SCH (09:00)
[2022-01-31] MEDS: Oxybutynin 5 MG TAB PO SCH (09:04)
== END 2022-01-31 11:35 | disposition home or self-care (01) ==
LOC: SDC 11:26 → SURG A 16:40
PROVIDERS: ADMIT Otolaryngology Plastic Surgery within the Head & Neck; ATTEND Otolaryngology Plastic Surgery within the Head & Neck
PROC: 0GTH0ZZ Resection of Right Thyroid Gland Lobe, Open Approach (ICD-10-PCS; principal; 2022-01-30)
DX: E04.1 Nontoxic single thyroid nodule (principal); I10 Essential (primary) hypertension; E78.5 Hyperlipidemia, unspecified; J44.9 Chronic obstructive pulmonary disease, unspecified; Z79.82 Long term (current) use of aspirin; Z79.83 Long term (current) use of bisphosphonates; Z79.899 Other long term (current) drug therapy; Z88.5 Allergy status to narcotic agent; Z87.891 Personal history of nicotine dependence
CPT/HCPCS: 60220; 90732; 94660 ×2; C1776; C1889; G0009; 88307; 90471; 96374; 96376; G0378; J0690; J1100; J2405; J2704; J3010; J3490; J7620; S0028

== ENCOUNTER 2022-03-29 09:56 | Outpatient (CLI) | payer MEDICARE, OTHER ==
[2022-03-29 12:10] LABS: Hemoglobin 14.5 g/dL (12.0-15.5); Mean Corpuscular HGB CONC 31.5 g/dL (32.0-36.0); Mean Corpuscular Hemoglobin 29.2 pg (27.0-33.0); Mean Corpuscular Volume 92.9 fl (81.6-98.3); Platelet Count 553 10x3/uL (150-450); RBC Distribution Width 13.4 % (11.5-14.5); Red Blood Cell (RBC) Count 4.96 10x6/uL (3.90-5.03); White Blood Cell (WBC) Count 14.8 10x3/uL (3.5-10.5)
[2022-03-29 12:35] LABS: Anion Gap 16 mmol/L (10-20); BUN (Urea Nitrogen) 15 mg/dL (9.8-20.1); Calc. Creatinine Clearance 0 mL/min (70-130); Calcium 10.1 mg/dL (7.8-10.44); Carbon Dioxide 34 mmol/L (23-31); Chloride 96 mmol/L (98-107); Estimated GFR 72; Glucose 107 mg/dL (83-110); Potassium 4.6 mmol/L (3.5-5.1); Sodium 141 mmol/L (136-145)
== END 2022-03-29 09:57 | disposition home or self-care (01) ==
LOC: LABBT 09:56
PROVIDERS: ATTEND Otolaryngology Plastic Surgery within the Head & Neck
DX: Z01.818 Encounter for other preprocedural examination (principal); C73 Malignant neoplasm of thyroid gland; Z20.822 Contact with and (suspected) exposure to COVID-19
CPT/HCPCS: 80048; 85027; 87811; 93005; 93010

== ENCOUNTER 2022-04-03 07:11 | Observation (INO) | payer MEDICARE, OTHER ==
[2022-04-03] MEDS ORDERED: Bupivacaine/Epinephrine 0.25% 30 ML VIAL ONE (08:39)
[2022-04-03] MEDS ORDERED: fentaNYL Citrate/PF 100 MCG/2 ML SYRINGE ONE ×2 (08:46→08:47)
[2022-04-03] MEDS ORDERED: Lidocaine 1% MPF 2 ML VIAL ONE (10:00)
[2022-04-03] MEDS ORDERED: PROPOFOL 200 MG/20 ML VIAL ONE (10:00)
[2022-04-03] MEDS ORDERED: Succinylcholine 200 MG/10 ml SYRINGE FS ONE (10:00)
[2022-04-03] MEDS ORDERED: Dexamethasone 20 MG/5 ML VIAL ONE (10:00)
[2022-04-03] MEDS ORDERED: Albuterol Sulfate HFA (OR ONLY) ONE (10:00)
[2022-04-03] MEDS ORDERED: Lidocaine 2% PF 5 ML VIAL ONE (10:06)
[2022-04-03] MEDS ORDERED: PROPOFOL 40 ML ONE (10:33)
[2022-04-03] MEDS ORDERED: hydrALAZINE 20 MG/ML VIAL ONE (11:33)
[2022-04-03] MEDS ORDERED: Fentanyl 100 MCG/2 ML VIAL ONE (12:51)
[2022-04-03] MEDS ORDERED: Ondansetron PF 4 MG/2 ML Vial ONE (13:12)
[2022-04-03 14:18] VITALS: BMI 33.8
[2022-04-03] MEDS ORDERED: traMADol HCl 50 MG TAB PO PRN (14:27)
[2022-04-03] MEDS ORDERED: Ondansetron PF 4 MG/2 ML Vial IVP PRN (14:27)
[2022-04-03] MEDS ORDERED: Bacitracin 1 PK TOP PRN (14:29)
[2022-04-03] MEDS: Calcium Carbonate 500 MG TAB PO SCH ×2 (14:56→22:22)
[2022-04-03] MEDS: Sodium Chloride 0.45% 1,000 ML IV SCH ×2 (14:56→22:21)
[2022-04-03] MEDS ORDERED: Melatonin 3 MG TAB PO SCH (22:15)
[2022-04-04 06:40] LABS: Mean Corpuscular HGB CONC 32.2 g/dL (32.0-36.0); Mean Corpuscular Hemoglobin 30.4 pg (27.0-31.0); Mean Corpuscular Volume 94.3 fL (78.0-98.0); Mean Platelet Volume 7.8 fL (7.4-10.4); Platelet Count 410 thou/uL (130-400); Red Blood Cell (RBC) Count 4.27 mill/uL (4.20-5.40); White Blood Cell (WBC) Count 23.4 thou/uL (4.8-10.8)
[2022-04-04 06:52] LABS: Anion Gap 13 mmol/L (10-20); BUN (Urea Nitrogen) 8 mg/dL (9.8-20.1); Calc. Creatinine Clearance 95 mL/min (70-130); Calcium 8.9 mg/dL (7.8-10.44); Carbon Dioxide 28 mmol/L (23-31); Chloride 102 mmol/L (98-107); Estimated GFR 89; Glucose 98 mg/dL (83-110); Sodium 139 mmol/L (136-145)
[2022-04-04] MEDS: Sodium Chloride 0.45% 1,000 ML IV SCH (07:44)
[2022-04-04 08:12] LABS: Band 5 % (5-11); Lymphocytes 8 % (21-51); MDiff Complete? YES; Monocytes 2 % (0-10); Neutrophil 84 % (42-75); Platelet Morphology Comment Appears Increased; RBC Morphology Normal; Reactive Lymphocytes 1 % (0-10)
[2022-04-04] MEDS ORDERED: Calcitriol 0.25 MCG CAP PO SCH (09:00)
[2022-04-04] MEDS: Calcium Carbonate 500 MG TAB PO SCH (09:04)
[2022-04-04 12:23] VITALS: BP 129/75; TEMP 97.6
[2022-04-04] MEDS ORDERED: Melatonin 3 MG TAB PO SCH (21:00)
== END 2022-04-04 14:40 | disposition home or self-care (01) ==
LOC: SDC 07:11 → SJJU 14:13
PROVIDERS: ADMIT Otolaryngology Plastic Surgery within the Head & Neck; ATTEND Otolaryngology Plastic Surgery within the Head & Neck
PROC: 0GTK0ZZ Resection of Thyroid Gland, Open Approach (ICD-10-PCS; principal; 2022-04-03)
DX: C73 Malignant neoplasm of thyroid gland (principal); E04.2 Nontoxic multinodular goiter; E89.0 Postprocedural hypothyroidism; J38.01 Paralysis of vocal cords and larynx, unilateral; I10 Essential (primary) hypertension; E78.5 Hyperlipidemia, unspecified; J44.9 Chronic obstructive pulmonary disease, unspecified; G47.33 Obstructive sleep apnea (adult) (pediatric); M81.0 Age-related osteoporosis without current pathological fracture; E55.9 Vitamin D deficiency, unspecified; Z87.891 Personal history of nicotine dependence; Z79.82 Long term (current) use of aspirin; Z79.83 Long term (current) use of bisphosphonates; Z79.899 Other long term (current) drug therapy; Z88.5 Allergy status to narcotic agent
CPT/HCPCS: 60260; 80048; 82310 ×2; 83970; 85025; C1776; 36415; 88307; J0360; J1100; J2001; J2405; J2704; J3010; J7620

== ENCOUNTER 2022-10-28 09:20 | Outpatient (CLI) | payer MEDICARE, OTHER | END 2022-10-28 09:21 | disposition home or self-care (01) | LOC: CT 09:20 | PROVIDERS: ATTEND Registered Nurse | DX: Z12.2 Encounter for screening for malignant neoplasm of respiratory organs (principal); Z87.891 Personal history of nicotine dependence | CPT/HCPCS: 71271 ==

== ENCOUNTER 2024-03-19 10:13 | Outpatient (CLI) | payer MEDICARE, OTHER | END 2024-03-19 10:14 | disposition home or self-care (01) | LOC: BICCT 10:13 | PROVIDERS: ATTEND Registered Nurse | DX: Z12.2 Encounter for screening for malignant neoplasm of respiratory organs (principal); Z87.891 Personal history of nicotine dependence | CPT/HCPCS: 71271 ==

== ENCOUNTER 2025-04-04 09:06 | Outpatient (CLI) | payer MEDICARE, OTHER | END 2025-04-04 09:07 | disposition home or self-care (01) | LOC: BICCT 09:06 | PROVIDERS: ATTEND Registered Nurse | DX: Z12.31 Encounter for screening mammogram for malignant neoplasm of breast (principal); Z12.2 Encounter for screening for malignant neoplasm of respiratory organs; Z87.891 Personal history of nicotine dependence; M81.0 Age-related osteoporosis without current pathological fracture; Z78.0 Asymptomatic menopausal state; Z79.83 Long term (current) use of bisphosphonates; M85.89 Other specified disorders of bone density and structure, multiple sites; Z80.3 Family history of malignant neoplasm of breast; Z85.850 Personal history of malignant neoplasm of thyroid; Z91.89 Other specified personal risk factors, not elsewhere classified | CPT/HCPCS: 71271; 77063; 77067; 77080 ==